=== PATIENT | female | born 1935 | race Caucasian/White ===

== ENCOUNTER 2021-12-19 20:20 | Inpatient (IN) | payer MEDICARE, OTHER ==
[~2021-12-19] VITALS: Ht 160 cm; Wt 52.2 kg
[2021-12-19 20:00] VITALS: BP 155/75
[2021-12-19] MEDS ORDERED: MAG HYDROX/AL HYDROX/SIMETH 30 ML UDC PO PRN (21:00)
[2021-12-19] MEDS ORDERED: MAGNESIUM HYDROXIDE 30 ML UDC PO PRN (21:00)
[2021-12-19] MEDS ORDERED: AMLO-213 PO (21:09)
[2021-12-19] MEDS ORDERED: ATOR20TA PO (21:11)
[2021-12-19] MEDS ORDERED: CARV12.52 PO (21:12)
[2021-12-19] MEDS ORDERED: POTA10CA43 PO (21:14)
[2021-12-19] MEDS ORDERED: LATA2.5D15 EACHEYE (21:16)
[2021-12-19] MEDS ORDERED: DONE5TAB34 PO (21:17)
[2021-12-19] MEDS ORDERED: QUET25TA PO (21:19)
[2021-12-19] MEDS ORDERED: BENA40TA8 PO (21:24)
[2021-12-19] MEDS ORDERED: MOXI3DRO EACHEYE (21:24)
[2021-12-19] MEDS ORDERED: THIA100T70 PO (21:26)
[2021-12-19] MEDS: POTASSIUM BICARBONATE/CIT AC 25 MEQ TABLET.EFF PO SCH (22:00)
[2021-12-19] MEDS: ATORVASTATIN 10 MG TABLET PO SCH (22:00)
[2021-12-19] MEDS ORDERED: BLOOD SUGAR DIAGNOSTIC 1 EACH STRIP IN ONE (22:30)
[2021-12-20 01:41] VITALS: BP 129/76
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
--- NOTE | 2021-12-20 06:27 | NUR ---
RN NOTES: PLACED CALL PT. DAUGHTER RADHA SAUNDERS LEFT MESSAGES # [phone] , REGARDING ABOUT PT. ADMITTED IN GPS .
--- NOTE | 2021-12-20 06:30 | NUR ---
RN NOTES: REFUSED SKIN SKIN ASESSMENT PT. REFUSED SKIN ASSESSMENT AND PHOTOS TAKEN , PER PT. MY SKIN IS FINE , NO NEED TO BE ASSESS , PT BEHAVIOR UNCOOPERTIVE ANXIOUS, RESTLESS,PARANOID , ENCOURAGED X3 BUT PT. STRONGLY REFUSED.
[2021-12-20 07:31] LABS: BASOPHILS % (AUTO) 0.4 % (0.0-2.0); EOSINOPHILS % (AUTO) 3.9 % (0.0-6.0); HEMATOCRIT 31 % (33-45); HEMOGLOBIN 10.2 g/dL (11.5-14.8); LYMPHOCYTES # (AUTO) 1.7 K/uL (0.8-4.8); LYMPHOCYTES % (AUTO) 24.1 % (20.0-44.0); MEAN CORPUSCULAR HGB CONC 33 g/dl (31.0-36.0); MEAN CORPUSCULAR VOLUME 88 fL (82-100); MONOCYTES # (AUTO) 0.7 K/uL (0.1-1.30); MONOCYTES % (AUTO) 9.8 % (2.0-12.0); NEUTROPHILS # (AUTO) 4.3 K/uL (1.8-8.9); NEUTROPHILS % (AUTO) 61.8 % (43.0-81.0); PLATELET COUNT (AUTO) 296 K/uL (150-450); RED BLOOD CELL COUNT(AUTO) 3.56 MIL/uL (4.0-5.2); WHITE BLOOD COUNT (AUTO) 6.9 K/uL (4.3-11.0)
[2021-12-20 07:40] LABS: CALCIUM, SERUM 8.4 mg/dL (8.5-10.1); CARBON DIOXIDE 26 mmol/L (21-32); CHLORIDE 109 mmol/L (98-107); CREATININE 1.4 mg/dL (0.6-1.3); GLUCOSE 90 mg/dL (74-106); POTASSIUM 3.3 mmol/L (3.5-5.1); SODIUM SERUM 141 mmol/L (136-145); UREA NITROGEN, BLOOD 29 mg/dL (7-18)
[2021-12-20 07:48] LABS: CHOLESTEROL 132 mg/dL (<200); HDL CHOLESTEROL 57 mg/dL (40-60); LDL 66 mg/dL (0-99); TRIGLYCERIDES 34 mg/dL (30-150)
[2021-12-20 08:00] VITALS: BP 151/76
[2021-12-20] MEDS: THIAMINE HCL 100 MG TABLET PO SCH (08:43)
[2021-12-20] MEDS: BENAZEPRIL HCL 20 MG TABLET PO SCH (08:44)
[2021-12-20] MEDS: CARVEDILOL 12.5 MG TABLET PO SCH ×2 (08:44→20:18)
[2021-12-20] MEDS: CEPHALEXIN MONOHYDRATE 500 MG CAPSULE PO SCH ×2 (08:44→20:08)
[2021-12-20] MEDS: POTASSIUM CHLORIDE 10 MEQ TABLET.SA PO SCH (08:45)
[2021-12-20] MEDS: AMLODIPINE BESYLATE 10 MG TABLET PO SCH (08:50)
[2021-12-20] MEDS: CIPROFLOXACIN HCL 0.3% 5 ML BOTTLE EACHEYE SCH (10:46)
[2021-12-20] MEDS: LORAZEPAM 0.5 MG TABLET PO PRN (15:27)
[2021-12-20 16:00] VITALS: BP 119/67
[2021-12-20] MEDS: LATANOPROST EYE DROP 0.005% 2.5 ML BOTTLE EACHEYE SCH (17:04)
[2021-12-20] MEDS: DONEPEZIL 5 MG TABLET PO SCH (17:05)
--- NOTE | 2021-12-20 19:46 | NUR ---
RN NOTES: REFUSED MRI RECIVED PHONE CALL FROM MRI , SPOKE WITH WARPER FIXERABRIL HALEY BUT PT. REFUSED MRI AT THIS TIME, PER PT.STATES NOTHING MRI TEST TONIGHT, MAY BE IN THE MORNING AND NO NEED TO BE CHECK NOW , PT BEHAVIOR UNCOOPERTIVE ANXIOUS,PARANOID , PRIMARY NURSE AND CHARGE NURSE BOTH ARE ENCOURAGED TO THE PATIENT, BUT PT. STRONGLY REFUSED.
[2021-12-20 20:22] VITALS: BP 128/74
--- NOTE | 2021-12-20 20:30 | NUR ---
RN NOTES: PATIENT PACING IN THE HALLWAY AWAKE, ALERT. NO S/SX OF ACUTE DISTRESS NOTED. PATIENT REMAINS ANXIOUS,UNCOOPERTIVE, PARANOID LOUD, DEMANDING, NEEDY, HYPERVERBAL,TALKING TO SELF, FOCUSED ON DISCHARGE. DENIES SI/HI/AVH AT THIS TIME. NEEDS FREQUENTLY REDIRECTIONS ,ENCOURAGED PT. TO VERBALIZED ANY FELLING OR CONCERN ,SAFETY PRECAUTIONS MAINTAINED. WILL CONTINUE TO MONITOR Q15MIN ROUNDS FOR SAFETY AND BEHAVIOR.
[2021-12-20] MEDS: QUETIAPINE FUMARATE 25 MG TABLET PO SCH (21:12)
[2021-12-20] MEDS: ATORVASTATIN 10 MG TABLET PO SCH (21:12)
--- NOTE | 2021-12-21 07:00 | NUR ---
GPS RN OPENING NOTES PATIENT LAYING IN BED, A/O X 1, CONFUSED AND DISORIENTED BUT CALM AFFECT AND COOPERATIVE WITH PLAN OF CARE. NO S/S PAIN, DISCOMFORT OR RESPIRATORY DISTRESS. SAFETY MEASURES IN PLACE: BED IN LOWEST LOCKED POSITION, SIDE RAILS UP X 2, CALL LIGHT WITHIN REACH. WILL CONTINUE TO MONITOR.
[2021-12-21 08:00] VITALS: BP 157/79
[2021-12-21] MEDS: THIAMINE HCL 100 MG TABLET PO SCH (08:37)
[2021-12-21] MEDS: BENAZEPRIL HCL 20 MG TABLET PO SCH (08:37)
[2021-12-21] MEDS: POTASSIUM CHLORIDE 10 MEQ TABLET.SA PO SCH (08:38)
[2021-12-21] MEDS: AMLODIPINE BESYLATE 10 MG TABLET PO SCH (08:38)
[2021-12-21] MEDS: CEPHALEXIN MONOHYDRATE 500 MG CAPSULE PO SCH ×2 (08:38→20:44)
[2021-12-21] MEDS: CARVEDILOL 12.5 MG TABLET PO SCH ×2 (08:38→20:44)
[2021-12-21] MEDS: CIPROFLOXACIN HCL 0.3% 5 ML BOTTLE EACHEYE SCH (08:45)
[2021-12-21 16:00] VITALS: BP 150/78
[2021-12-21] MEDS: DONEPEZIL 5 MG TABLET PO SCH (17:02)
[2021-12-21] MEDS: LATANOPROST EYE DROP 0.005% 2.5 ML BOTTLE EACHEYE SCH (17:07)
--- NOTE | 2021-12-21 18:02 | NUR ---
GPS RN CLOSING NOTES PATIENT SITTING IN CHAIR, A/O X 1, CONFUSED AND DISORIENTED BUT CALM AFFECT AND COOPERATIVE WITH PLAN OF CARE. NO S/S PAIN, DISCOMFORT OR RESPIRATORY DISTRESS. SAFETY MEASURES IN PLACE: BED IN LOWEST LOCKED POSITION, SIDE RAILS UP X 2, CALL LIGHT WITHIN REACH. ALL NEEDS MET. WILL ENDORSE TO COIN DEALER FOR MILAD[employer]. Addendum: 12/21/21 at 1806 by CJ ACOSTA RN SAFETY PRECAUTIONS: CHAIR WITH SIDE RAILS UP X 2, WITHIN VIEW OF NURSES STATION
--- NOTE | 2021-12-21 20:13 | NUR ---
RN NOTES: PATIENT WATCHING TV IN DAY ROOM AWAKE, ALERT. NO S/SX OF ACUTE DISTRESS NOTED. PATIENT REMAINS ANXIOUS,WANDRING AROUND THE UNIT UNCOOPERTIVE, PARANOID LOUD, DEMANDING, NEEDY, HYPERVERBAL,TALKING TO SELF, FOCUSED ON DISCHARGE. DENIES SI/HI/AVH AT THIS TIME. NEEDS FREQUENTLY REDIRECTIONS ,ENCOURAGED PT. TO VERBALIZED ANY FELLING OR CONCERN ,SAFETY PRECAUTIONS MAINTAINED. WILL CONTINUE TO MONITOR Q15MIN ROUNDS FOR SAFETY AND BEHAVIOR.
[2021-12-21 20:45] VITALS: BP 151/76
[2021-12-21] MEDS: QUETIAPINE FUMARATE 25 MG TABLET PO SCH (21:15)
[2021-12-21] MEDS: ATORVASTATIN 10 MG TABLET PO SCH (21:15)
--- NOTE | 2021-12-22 01:48 | NUR ---
RN NOTES: REFUSED SKIN ASESSMENT PT. REFUSED WEEKLY SKIN ASSESSMENT AND PHOTOS TAKEN , PER PT. MY SKIN IS FINE , NO NEED TO BE ASSESS ,UNCOOPERTIVE , PARANOID , ENCOURAGED X3 BUT PT. STRONGLY REFUSED.
[2021-12-22 08:00] VITALS: BP 170/58
[2021-12-22] MEDS: POTASSIUM CHLORIDE 10 MEQ TABLET.SA PO SCH (09:24)
[2021-12-22] MEDS: THIAMINE HCL 100 MG TABLET PO SCH (09:24)
[2021-12-22] MEDS: BENAZEPRIL HCL 20 MG TABLET PO SCH (09:25)
[2021-12-22] MEDS: AMLODIPINE BESYLATE 10 MG TABLET PO SCH (09:26)
[2021-12-22] MEDS: CARVEDILOL 12.5 MG TABLET PO SCH ×2 (09:26→21:38)
[2021-12-22] MEDS: CEPHALEXIN MONOHYDRATE 500 MG CAPSULE PO SCH ×2 (09:27→21:40)
[2021-12-22] MEDS: CIPROFLOXACIN HCL 0.3% 5 ML BOTTLE EACHEYE SCH (09:36)
--- NOTE | 2021-12-22 09:39 | NUR ---
Individual Therapy: SW met with pt to conduct brief therapy. Pt appeared guarded and stated "I do not want to talk right now". SW unable to conduct therapy at this time.
--- NOTE | 2021-12-22 10:19 | NUR ---
DINESH Family Contact: DINESH contacted pt's daughter Laverne ([phone]) and gathered collateral. She stated for the past 9 months, pt has been aggressive at home and has been leaving the house. She stated that pt has been on Seroquel for the past two to three months and it has not been helpful. She did report that sister Rosa is the DPOA and will send the document to this sports writer. Laverne reported that family is looking into a snf for pt in [place]. DINESH offered [place] locations but Laverne stated that they want to find one in [place]. DINESH discussed treatment and discharge plan with Laverne. DINESH notified this information to Dr. Carcamo.
--- NOTE | 2021-12-22 10:24 | NUR ---
DINESH Initial Discharge Plan: Pt currently resides at home located at [address] [place] [address]; ([phone]). Pt lives with daughter Laverne ([phone]). Daughter stated sister Rosa is DPOA and will send documents. They want pt to go to a nursing facility in [place]. DINESH will work with the MD, family, and pt to help coordinate appropriate discharge.
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
--- NOTE | 2021-12-22 10:25 | NUR ---
Treatment Plan: Pt refused to sign treatment plan and appeared angry. She stated "No, I will not sign".
[2021-12-22 16:00] VITALS: BP 160/59
[2021-12-22] MEDS: DONEPEZIL 5 MG TABLET PO SCH (18:19)
[2021-12-22] MEDS: LATANOPROST EYE DROP 0.005% 2.5 ML BOTTLE EACHEYE SCH (18:20)
--- NOTE | 2021-12-22 19:15 | NUR ---
GPS RN NOTES PATIENT IN THE DINING ROOM WATCHING TV. ALERT AND ORIENTED X1. NO S/SX OF ACUTE DISTRESS NOTED. PATIENT REMAINS CONFUSED, ANXIOUS, REQUIRES FREQUENT REDIRECTIONS AND DISORGANIZED. SAFETY PRECAUTIONS IN PLACE. WILL CONTINUE TO MONITOR Q15MIN ROUNDS FOR SAFETY AND BEHAVIOR.
[2021-12-22 20:07] VITALS: BP 153/80
[2021-12-22] MEDS: ATORVASTATIN 10 MG TABLET PO SCH (21:37)
[2021-12-22] MEDS: QUETIAPINE FUMARATE 25 MG TABLET PO SCH (21:37)
[2021-12-23 08:00] VITALS: BP 146/67
[2021-12-23] MEDS: THIAMINE HCL 100 MG TABLET PO SCH (09:08)
[2021-12-23] MEDS: CIPROFLOXACIN HCL 0.3% 5 ML BOTTLE EACHEYE SCH (09:08)
[2021-12-23] MEDS: AMLODIPINE BESYLATE 10 MG TABLET PO SCH (09:09)
[2021-12-23] MEDS: ASPIRIN EC 81 MG TABLET.DR PO SCH (09:09)
[2021-12-23] MEDS: CARVEDILOL 12.5 MG TABLET PO SCH ×2 (09:09→21:17)
[2021-12-23] MEDS: CEPHALEXIN MONOHYDRATE 500 MG CAPSULE PO SCH ×2 (09:09→21:18)
[2021-12-23] MEDS: POTASSIUM CHLORIDE 10 MEQ TABLET.SA PO SCH (09:09)
[2021-12-23] MEDS: BENAZEPRIL HCL 20 MG TABLET PO SCH (09:10)
--- NOTE | 2021-12-23 09:36 | NUR ---
DINESH Family Contact: DINESH spoke with pt's daughter Rosa ([phone]) and discussed pt's treatment and discharge plan. She reported that she is the DPOA and will send the document. Daughter shared that she has been taking care of pt for the past 11 years. She stated that pt has been aggressive for the past 11 years and has been forgetful. She expressed that pt will be needing a nursing facility and is open for this technical writer to recommend. DINESH gave three options: [facility], [facility], and [facility]. Rosa stated she will review and pick a facility for this technical writer to send clinicals. She also shared pt has been taking seroquel for the past two months and it has not been helpful. She is unsure if pt has been diagnosed with schizophrenia. Pt has been in a psych hospital last year at [facility] for two weeks but the hospital did not disclose any information to family. DINESH will continue to work with family to help coordinate appropriate placement.
--- NOTE | 2021-12-23 11:27 | NUR ---
SNF Referral: SW sent clinicals to [facility] ([phone]) for placement option. DINESH sent it to Marj manuel. SW sent H & P, progress notes, and medication list.
--- NOTE | 2021-12-23 11:27 | NUR ---
DINESH Family Contact: DINESH spoke with pt's daughter Rosa ([phone]) who would want this story writer to send clinicals to [facility].
[2021-12-23 16:00] VITALS: BP 121/55
--- NOTE | 2021-12-23 16:17 | NUR ---
SNF Contact: SW spoke with Marj manuel from [facility] ([phone]) who stated pt is accepted.
[2021-12-23] MEDS: DONEPEZIL 5 MG TABLET PO SCH (17:05)
[2021-12-23] MEDS: LATANOPROST EYE DROP 0.005% 2.5 ML BOTTLE EACHEYE SCH (17:05)
[2021-12-23] MEDS: risperiDONE 0.25 MG TABLET PO SCH (17:05)
--- NOTE | 2021-12-23 19:15 | NUR ---
GPS RN NOTES PATIENT IN HER BED RESTING COMFORTABLY. AWAKE, ALERT AND ORIENTED X1. NO S/SX OF ACUTE DISTRESS NOTED. PATIENT REMAINS CONFUSED, ANXIOUS, REQUIRES FREQUENT REDIRECTIONS, EASILY GETS IRRITABLE. ENCOURAGED PATIENT TO USE HER WALKER TO AMBULATE FOR SAFETY. WILL CONTINUE TO MONITOR Q15MIN ROUNDS FOR SAFETY AND BEHAVIOR.
[2021-12-23 20:17] VITALS: BP 141/60
[2021-12-23] MEDS: ATORVASTATIN 10 MG TABLET PO SCH (21:17)
[2021-12-23] MEDS ORDERED: TRAZODONE 50 MG TABLET PO SCH (22:00)
[2021-12-24] MEDS: ZOLPIDEM TARTRATE 5 MG TABLET PO PRN ×2 (01:15→22:56)
[2021-12-24 08:00] VITALS: BP 159/60
[2021-12-24] MEDS: BENAZEPRIL HCL 20 MG TABLET PO SCH (09:08)
[2021-12-24] MEDS: CIPROFLOXACIN HCL 0.3% 5 ML BOTTLE EACHEYE SCH (09:08)
[2021-12-24] MEDS: CARVEDILOL 12.5 MG TABLET PO SCH ×2 (09:09→21:23)
[2021-12-24] MEDS: risperiDONE 0.25 MG TABLET PO SCH ×2 (09:09→17:21)
[2021-12-24] MEDS: POTASSIUM CHLORIDE 10 MEQ TABLET.SA PO SCH (09:09)
[2021-12-24] MEDS: THIAMINE HCL 100 MG TABLET PO SCH (09:09)
[2021-12-24] MEDS: ASPIRIN EC 81 MG TABLET.DR PO SCH (09:09)
[2021-12-24] MEDS: CEPHALEXIN MONOHYDRATE 500 MG CAPSULE PO SCH ×2 (09:09→21:24)
[2021-12-24] MEDS: AMLODIPINE BESYLATE 10 MG TABLET PO SCH (09:10)
--- NOTE | 2021-12-24 09:22 | NUR ---
DINESH Family Contact: DINESH spoke with pt's daughter Rosa ([phone]) and notified that pt is accepted at [facility]. She reported that she will Email OA paperwork due to fax not working. Daughter Rosa is agreeable of pt going to [facility]. DINESH did notify the medication changes.
[2021-12-24] MEDS: NEO/POLY-B/DEXAM OPHTH SUSP 5 ML BOTTLE LEFTEYE SCH ×4 (11:05→21:25)
--- NOTE | 2021-12-24 11:22 | NUR ---
DPOA Paperwork: SW received DPOA paperwork and placed it in the chart. Daughter SIENNAJACKY Lee ([phone]).
--- NOTE | 2021-12-24 14:04 | NUR ---
Court Notification: SW contacted pt's VISH Lee ([phone]) and notified of 5250 hearing.
--- NOTE | 2021-12-24 14:04 | NUR ---
Court Hearing: Pt's court hearing for 5250 was today and it was upheld for danger to others.
[2021-12-24] MEDS: LORAZEPAM 0.5 MG TABLET PO PRN (14:12)
[2021-12-24 16:00] VITALS: BP 133/67
[2021-12-24] MEDS: DONEPEZIL 5 MG TABLET PO SCH (17:21)
[2021-12-24] MEDS: LATANOPROST EYE DROP 0.005% 2.5 ML BOTTLE EACHEYE SCH (17:23)
[2021-12-24] MEDS: ATORVASTATIN 10 MG TABLET PO SCH (21:20)
[2021-12-24] MEDS: TRAZODONE 50 MG TABLET PO SCH (21:40)
[2021-12-25] MEDS: NEO/POLY-B/DEXAM OPHTH SUSP 5 ML BOTTLE LEFTEYE SCH ×6 (00:39→21:00)
--- NOTE | 2021-12-25 01:00 | NUR ---
rn notes; pt refused nadeem/poly-b/dexam ophth susp 5ml bottle left eyes Q4hrs.explained the benefits and action.
[2021-12-25] MEDS: LORAZEPAM 0.5 MG TABLET PO PRN (05:43)
[2021-12-25] MEDS: ACETAMINOPHEN 325 MG TABLET PO PRN (05:47)
[2021-12-25 08:00] VITALS: BP 148/61
[2021-12-25] MEDS: THIAMINE HCL 100 MG TABLET PO SCH (08:53)
[2021-12-25] MEDS: BENAZEPRIL HCL 20 MG TABLET PO SCH (08:53)
[2021-12-25] MEDS: CARVEDILOL 12.5 MG TABLET PO SCH ×2 (08:53→20:51)
[2021-12-25] MEDS: POTASSIUM CHLORIDE 10 MEQ TABLET.SA PO SCH (08:53)
[2021-12-25] MEDS: ASPIRIN EC 81 MG TABLET.DR PO SCH (08:54)
[2021-12-25] MEDS: risperiDONE 0.25 MG TABLET PO SCH ×3 (08:54→17:02)
[2021-12-25] MEDS: AMLODIPINE BESYLATE 10 MG TABLET PO SCH (08:55)
[2021-12-25] MEDS: CEPHALEXIN MONOHYDRATE 500 MG CAPSULE PO SCH (08:56)
[2021-12-25] MEDS: CIPROFLOXACIN HCL 0.3% 5 ML BOTTLE EACHEYE SCH (11:07)
[2021-12-25] MEDS: LATANOPROST EYE DROP 0.005% 2.5 ML BOTTLE EACHEYE SCH (11:09)
[2021-12-25] MEDS: DIVALPROEX SODIUM 250 MG TABLET.DR PO SCH ×2 (11:16→20:51)
[2021-12-25 16:00] VITALS: BP 156/82
[2021-12-25] MEDS: DONEPEZIL 5 MG TABLET PO SCH (17:02)
[2021-12-25 20:00] VITALS: BP 163/87
[2021-12-25] MEDS: ATORVASTATIN 10 MG TABLET PO SCH (21:06)
[2021-12-25] MEDS: TRAZODONE 50 MG TABLET PO SCH (21:08)
[2021-12-25] MEDS: ZOLPIDEM TARTRATE 5 MG TABLET PO PRN (23:29)
[2021-12-26] MEDS: LORAZEPAM 0.5 MG TABLET PO PRN (01:32)
[2021-12-26] MEDS: NEO/POLY-B/DEXAM OPHTH SUSP 5 ML BOTTLE LEFTEYE SCH ×6 (01:37→21:35)
[2021-12-26 08:00] VITALS: BP 159/88
--- NOTE | 2021-12-26 08:47 | NUR ---
DINESH Family Contact: SW spoke with pt's daughter Rosa WAHL ([phone]) and she stated she is agreeable of pt going to [facility].
[2021-12-26] MEDS: ASPIRIN EC 81 MG TABLET.DR PO SCH (09:33)
[2021-12-26] MEDS: THIAMINE HCL 100 MG TABLET PO SCH (09:33)
[2021-12-26] MEDS: DIVALPROEX SODIUM 250 MG TABLET.DR PO SCH ×2 (09:34→21:37)
[2021-12-26] MEDS: BENAZEPRIL HCL 20 MG TABLET PO SCH (09:34)
[2021-12-26] MEDS: CARVEDILOL 12.5 MG TABLET PO SCH ×2 (09:35→21:36)
[2021-12-26] MEDS: risperiDONE 0.25 MG TABLET PO SCH ×2 (09:35→16:33)
[2021-12-26] MEDS: POTASSIUM CHLORIDE 10 MEQ TABLET.SA PO SCH (09:35)
[2021-12-26] MEDS: AMLODIPINE BESYLATE 10 MG TABLET PO SCH (09:36)
[2021-12-26] MEDS: CIPROFLOXACIN HCL 0.3% 5 ML BOTTLE EACHEYE SCH (10:12)
[2021-12-26 16:00] VITALS: BP 147/90
[2021-12-26] MEDS: LATANOPROST EYE DROP 0.005% 2.5 ML BOTTLE EACHEYE SCH (17:26)
[2021-12-26] MEDS: DONEPEZIL 5 MG TABLET PO SCH (17:26)
[2021-12-26 20:00] VITALS: BP 148/81
[2021-12-26] MEDS: ATORVASTATIN 10 MG TABLET PO SCH (21:37)
[2021-12-26] MEDS: TRAZODONE 50 MG TABLET PO SCH (21:37)
--- NOTE | 2021-12-26 22:00 | NUR ---
Pt compliant with her meds, took all due medications. Cont to monitor and anticipate needs.
--- NOTE | 2021-12-27 | NUR ---
Pt sleeping at this time, breathing even and unlabored, easy to arouse, no s/sx of distress or discomfort. Safety measures observed will continue to monitor safety and anticipate needs.
[2021-12-27] MEDS: NEO/POLY-B/DEXAM OPHTH SUSP 5 ML BOTTLE LEFTEYE SCH ×6 (00:17→21:38)
[2021-12-27 08:00] VITALS: BP 113/68
[2021-12-27] MEDS: THIAMINE HCL 100 MG TABLET PO SCH (08:43)
[2021-12-27] MEDS: DIVALPROEX SODIUM 250 MG TABLET.DR PO SCH ×2 (08:43→21:39)
[2021-12-27] MEDS: ASPIRIN EC 81 MG TABLET.DR PO SCH (08:43)
[2021-12-27] MEDS: ACETAMINOPHEN 325 MG TABLET PO PRN (08:43)
[2021-12-27] MEDS: POTASSIUM CHLORIDE 10 MEQ TABLET.SA PO SCH (08:43)
[2021-12-27] MEDS: CARVEDILOL 12.5 MG TABLET PO SCH ×2 (08:44→21:39)
[2021-12-27] MEDS: risperiDONE 0.25 MG TABLET PO SCH ×2 (08:44→17:17)
[2021-12-27] MEDS: AMLODIPINE BESYLATE 10 MG TABLET PO SCH (08:45)
[2021-12-27] MEDS: BENAZEPRIL HCL 20 MG TABLET PO SCH (08:45)
[2021-12-27] MEDS: CIPROFLOXACIN HCL 0.3% 5 ML BOTTLE EACHEYE SCH (08:47)
[2021-12-27 16:00] VITALS: BP 140/66
[2021-12-27] MEDS: LATANOPROST EYE DROP 0.005% 2.5 ML BOTTLE EACHEYE SCH (17:15)
[2021-12-27] MEDS: DONEPEZIL 5 MG TABLET PO SCH (17:19)
[2021-12-27 19:55] VITALS: BP 138/69
[2021-12-27 20:31] VITALS: BP 138/69
[2021-12-27] MEDS: ATORVASTATIN 10 MG TABLET PO SCH (21:52)
[2021-12-27] MEDS: TRAZODONE 50 MG TABLET PO SCH (22:06)
[2021-12-28] MEDS: NEO/POLY-B/DEXAM OPHTH SUSP 5 ML BOTTLE LEFTEYE SCH ×6 (01:06→20:33)
[2021-12-28 08:00] VITALS: BP 151/65
[2021-12-28] MEDS: CIPROFLOXACIN HCL 0.3% 5 ML BOTTLE EACHEYE SCH (08:06)
[2021-12-28] MEDS: THIAMINE HCL 100 MG TABLET PO SCH (08:08)
[2021-12-28] MEDS: BENAZEPRIL HCL 20 MG TABLET PO SCH (08:08)
[2021-12-28] MEDS: DIVALPROEX SODIUM 250 MG TABLET.DR PO SCH ×2 (08:08→20:26)
[2021-12-28] MEDS: CARVEDILOL 12.5 MG TABLET PO SCH ×2 (08:09→20:26)
[2021-12-28] MEDS: risperiDONE 0.25 MG TABLET PO SCH ×2 (08:09→17:08)
[2021-12-28] MEDS: AMLODIPINE BESYLATE 10 MG TABLET PO SCH (08:09)
[2021-12-28] MEDS: ASPIRIN EC 81 MG TABLET.DR PO SCH (08:10)
[2021-12-28] MEDS: POTASSIUM CHLORIDE 10 MEQ TABLET.SA PO SCH (08:10)
--- NOTE | 2021-12-28 10:00 | NUR ---
PATIENT REFUSED SHOWER WHICH PATIENT'S DTR ASKED FOR PATIENT.
[2021-12-28 16:00] VITALS: BP 146/68
[2021-12-28] MEDS: DONEPEZIL 5 MG TABLET PO SCH (17:07)
[2021-12-28] MEDS: LATANOPROST EYE DROP 0.005% 2.5 ML BOTTLE EACHEYE SCH (17:12)
[2021-12-28] MEDS: LORAZEPAM 0.5 MG TABLET PO PRN (17:12)
--- NOTE | 2021-12-28 19:15 | NUR ---
GPS RN NOTES PATIENT IN THE DINING ROOM SITTING IN A ROBERTO CHAIR. AWAKE, A/OX1. NO S/SX OF ACUTE DISTRESS NOTED. PATIENT REMAINS CONFUSED, ANXIOUS, ARGUMENTATIVE, DISORGANIZED, REQUIRES FREQUENT REDIRECTIONS. SAFETY PRECAUTIONS IN PLACE. WILL CONTINUE TO MONITOR Q15MIN ROUNDS FOR SAFETY AND BEHAVIOR.
--- NOTE | 2021-12-28 20:00 | NUR ---
GPS RN NOTES PATIENT REFUSED WEEKLY SKIN ASSESSMENT.
[2021-12-28 20:31] VITALS: BP 172/86
[2021-12-28 21:00] VITALS: BP 148/82
[2021-12-28] MEDS: TRAZODONE 50 MG TABLET PO SCH (21:05)
[2021-12-28] MEDS: ATORVASTATIN 10 MG TABLET PO SCH (21:05)
[2021-12-28] MEDS: ZOLPIDEM TARTRATE 5 MG TABLET PO PRN (22:28)
[2021-12-29] MEDS: NEO/POLY-B/DEXAM OPHTH SUSP 5 ML BOTTLE LEFTEYE SCH ×6 (01:44→21:09)
[2021-12-29] MEDS: ACETAMINOPHEN 325 MG TABLET PO PRN (02:00)
[2021-12-29] MEDS: LORAZEPAM 0.5 MG TABLET PO PRN (02:01)
[2021-12-29 08:00] VITALS: BP 150/63
[2021-12-29] MEDS: BENAZEPRIL HCL 20 MG TABLET PO SCH (09:12)
[2021-12-29] MEDS: POTASSIUM CHLORIDE 10 MEQ TABLET.SA PO SCH (09:12)
[2021-12-29] MEDS: risperiDONE 0.25 MG TABLET PO SCH ×2 (09:13→17:18)
[2021-12-29] MEDS: AMLODIPINE BESYLATE 10 MG TABLET PO SCH (09:13)
[2021-12-29] MEDS: DIVALPROEX SODIUM 250 MG TABLET.DR PO SCH ×2 (09:13→21:10)
[2021-12-29] MEDS: ASPIRIN EC 81 MG TABLET.DR PO SCH (09:13)
[2021-12-29] MEDS: CARVEDILOL 12.5 MG TABLET PO SCH ×2 (09:13→21:10)
[2021-12-29] MEDS: THIAMINE HCL 100 MG TABLET PO SCH (09:13)
[2021-12-29] MEDS: CIPROFLOXACIN HCL 0.3% 5 ML BOTTLE EACHEYE SCH (09:15)
--- NOTE | 2021-12-29 13:18 | NUR ---
pt c/o constipation medicated with MOm.
[2021-12-29 16:00] VITALS: BP 136/80
[2021-12-29] MEDS: DONEPEZIL 5 MG TABLET PO SCH (17:18)
[2021-12-29] MEDS: LATANOPROST EYE DROP 0.005% 2.5 ML BOTTLE EACHEYE SCH (17:19)
[2021-12-29 20:22] VITALS: BP 158/58
[2021-12-29 20:56] VITALS: BP 158/58
[2021-12-29] MEDS: TRAZODONE 50 MG TABLET PO SCH (21:58)
[2021-12-29] MEDS: ATORVASTATIN 10 MG TABLET PO SCH (21:58)
[2021-12-29] MEDS: ZOLPIDEM TARTRATE 5 MG TABLET PO PRN (23:11)
--- NOTE | 2021-12-29 23:16 | NUR ---
RN NOTE: INSOMNIA PATIENT IS UNABLE TO SLEEP, GETS IRRITABLE EASILY, PRN AMBIEN 5 MG PO ADMINISTERED. WILL CONTINUE TO MONITOR.
[2021-12-30] MEDS: NEO/POLY-B/DEXAM OPHTH SUSP 5 ML BOTTLE LEFTEYE SCH ×6 (01:15→21:19)
[2021-12-30] MEDS: LORAZEPAM 0.5 MG TABLET PO PRN (03:24)
--- NOTE | 2021-12-30 03:26 | NUR ---
RN NOTE: ANXIETY/AGITATION PATIENT IS ANXIOUS, RESTLESS, GOT AGITATED WHEN REDIRECTED. PRN ATIVAN 0.5 MG PO ADMINISTERED ORDERED BY MD. WILL CONTINUE TO MONITOR.
[2021-12-30 08:00] VITALS: BP 150/87
[2021-12-30] MEDS: POTASSIUM CHLORIDE 10 MEQ TABLET.SA PO SCH (08:57)
[2021-12-30] MEDS: THIAMINE HCL 100 MG TABLET PO SCH (08:57)
[2021-12-30] MEDS: CARVEDILOL 12.5 MG TABLET PO SCH ×2 (08:57→21:17)
[2021-12-30] MEDS: DIVALPROEX SODIUM 250 MG TABLET.DR PO SCH ×2 (08:58→21:17)
[2021-12-30] MEDS: ASPIRIN EC 81 MG TABLET.DR PO SCH (08:58)
[2021-12-30] MEDS: risperiDONE 0.25 MG TABLET PO SCH ×2 (08:58→17:23)
[2021-12-30] MEDS: AMLODIPINE BESYLATE 10 MG TABLET PO SCH (08:58)
[2021-12-30] MEDS: BENAZEPRIL HCL 20 MG TABLET PO SCH (08:59)
[2021-12-30] MEDS: CIPROFLOXACIN HCL 0.3% 5 ML BOTTLE EACHEYE SCH (09:27)
--- NOTE | 2021-12-30 09:50 | NUR ---
RN NOTE PATIENT WITH PLEASANT DISPOSITION, AND COMPLIANT WITH HER MEDICATIONS.
[2021-12-30 13:09] LABS: BASOPHILS % (AUTO) 0.2 % (0.0-2.0); EOSINOPHILS % (AUTO) 0.6 % (0.0-6.0); HEMATOCRIT 35 % (33-45); HEMOGLOBIN 10.9 g/dL (11.5-14.8); LYMPHOCYTES # (AUTO) 1.2 K/uL (0.8-4.8); LYMPHOCYTES % (AUTO) 11.9 % (20.0-44.0); MEAN CORPUSCULAR HGB CONC 31 g/dl (31.0-36.0); MEAN CORPUSCULAR VOLUME 87 fL (82-100); MONOCYTES # (AUTO) 0.8 K/uL (0.1-1.30); MONOCYTES % (AUTO) 8.1 % (2.0-12.0); NEUTROPHILS # (AUTO) 8.2 K/uL (1.8-8.9); NEUTROPHILS % (AUTO) 79.2 % (43.0-81.0); PLATELET COUNT (AUTO) 319 K/uL (150-450); RED BLOOD CELL COUNT(AUTO) 3.98 MIL/uL (4.0-5.2); WHITE BLOOD COUNT (AUTO) 10.4 K/uL (4.3-11.0)
[2021-12-30 13:26] LABS: ALANINE AMINOTRANSFERASE 21 U/L (12-78); ALKALINE PHOSPHATASE 84 U/L (46-116); ASPARTATE AMINOTRANSFERASE 17 U/L (15-37); BILIRUBIN,TOTAL 0.3 mg/dL (0.2-1.0); CALCIUM, SERUM 9.1 mg/dL (8.5-10.1); CARBON DIOXIDE 30 mmol/L (21-32); CHLORIDE 103 mmol/L (98-107); CREATININE 1.1 mg/dL (0.6-1.3); GLUCOSE 100 mg/dL (74-106); SODIUM SERUM 140 mmol/L (136-145); TOTAL PROTEIN, SERUM 7.3 g/dL (6.4-8.2); UREA NITROGEN, BLOOD 20 mg/dL (7-18)
[2021-12-30 14:47] LABS: VALPROIC ACID 52 ug/mL (50-100)
[2021-12-30 16:00] VITALS: BP 153/87
[2021-12-30] MEDS: DONEPEZIL 5 MG TABLET PO SCH (17:23)
[2021-12-30] MEDS: LATANOPROST EYE DROP 0.005% 2.5 ML BOTTLE EACHEYE SCH (17:24)
[2021-12-30 20:28] VITALS: BP 145/55
[2021-12-30 20:57] VITALS: BP 145/55
[2021-12-30] MEDS: TRAZODONE 50 MG TABLET PO SCH (22:06)
[2021-12-30] MEDS ORDERED: ATORVASTATIN 10 MG TABLET ONE (22:28)
[2021-12-30] MEDS: ATORVASTATIN 10 MG TABLET PO SCH (22:30)
[2021-12-31] MEDS: ZOLPIDEM TARTRATE 5 MG TABLET PO PRN ×2 (00:04→23:20)
--- NOTE | 2021-12-31 00:06 | NUR ---
RN NOTE: INSOMNIA PATIENT IS UNABLE TO SLEEP, GETS IRRITABLE EASILY, PRN AMBIEN 5 MG PO ADMINISTERED. WILL CONTINUE TO MONITOR.
[2021-12-31] MEDS: NEO/POLY-B/DEXAM OPHTH SUSP 5 ML BOTTLE LEFTEYE SCH ×6 (01:19→21:48)
[2021-12-31 08:00] VITALS: BP 148/71
[2021-12-31 08:13] LABS: CALCIUM, SERUM 8.8 mg/dL (8.5-10.1); CREATININE 1.3 mg/dL (0.6-1.3); POTASSIUM 3.6 mmol/L (3.5-5.1)
[2021-12-31] MEDS: POTASSIUM CHLORIDE 10 MEQ TABLET.SA PO SCH (09:02)
[2021-12-31] MEDS: risperiDONE 0.25 MG TABLET PO SCH ×2 (09:02→16:24)
[2021-12-31] MEDS: BENAZEPRIL HCL 20 MG TABLET PO SCH (09:02)
[2021-12-31] MEDS: THIAMINE HCL 100 MG TABLET PO SCH (09:02)
[2021-12-31] MEDS: ASPIRIN EC 81 MG TABLET.DR PO SCH (09:03)
[2021-12-31] MEDS: DIVALPROEX SODIUM 250 MG TABLET.DR PO SCH ×2 (09:03→21:47)
[2021-12-31] MEDS: AMLODIPINE BESYLATE 10 MG TABLET PO SCH (09:03)
[2021-12-31] MEDS: CARVEDILOL 12.5 MG TABLET PO SCH ×2 (09:03→21:48)
[2021-12-31] MEDS: CIPROFLOXACIN HCL 0.3% 5 ML BOTTLE EACHEYE SCH (09:08)
--- NOTE | 2021-12-31 13:43 | NUR ---
RN-CO: Patient is pleasant and took all her medications, however she needs constant redirections due to confusion. She denied pain and discomforts.
[2021-12-31 16:00] VITALS: BP 140/58
--- NOTE | 2021-12-31 17:35 | NUR ---
RN-CO: Tried to collect urine specimen but patient was not able to urinate. Tried in and out cath , pt refused and became agitated. Will endorse to the next shift.
[2021-12-31] MEDS: DONEPEZIL 5 MG TABLET PO SCH (18:09)
[2021-12-31] MEDS: LATANOPROST EYE DROP 0.005% 2.5 ML BOTTLE EACHEYE SCH (18:12)
--- NOTE | 2021-12-31 19:30 | NUR ---
GPS RN NOTE, RECEIVED PATIENT AWAKE AND IN BED, NO S/S OR COMPLAINTS OF PAIN AT THIS TIME. PATIENT IS DISPLAYING NO S/S OF APPARENT DISTRESS AT THIS TIME. PATIENT BREATHING IS UNLABORED WITH EQUAL RISE AND FALL OF THE CHEST. PATIENT IS ALERT AND ORIENTED X 1 ON ROOM AIR WITH A SPO2 99%. PATIENT IS COMPLIANT WITH MEDICATIONS, CONFUSED, ANXIOUS, PARANOID, AND COOPERATIVE. PATIENT DENIES SUICIDAL AND HOMICIDAL IDEATIONS AT THIS TIME. PATIENT ASSISTED WITH TURNING AND REPOSITIONING Q2HR AND PRN FOR COMFORT AND CIRCULATION. PATIENT HAS NO NEEDS AT THIS TIME. PATIENT EDUCATED ON THE USE OF THE CALL MILLER. PATIENT BED SIDE RAILS UP X 2 FOR SAFETY. PATIENT BED IS LOCKED, LOW, WITH BED ALARM ON. WILL CONTINUE TO MONITOR THIS PATIENT Q15 MINUTES WITH THE HELP OF STAFF TO MAINTAIN SAFETY.
[2021-12-31 20:00] VITALS: BP 142/62
[2021-12-31] MEDS: TRAZODONE 50 MG TABLET PO SCH (21:47)
[2021-12-31] MEDS: ATORVASTATIN 10 MG TABLET PO SCH (21:47)
[2021-12-31] MEDS: ACETAMINOPHEN 325 MG TABLET PO PRN (23:20)
--- NOTE | 2021-12-31 23:24 | NUR ---
GPS RN NOTE, PATIENT HAS A COMPLAINT OF NOT BEING ABLE TO SLEEP AND IS REQUESTING AMBIEN AT THIS TIME. PATIENT VITAL SIGNS ARE STABLE. GAVE AMBIEN 5MG PO HS PRN ORDERED. WILL REASSESS FOR INSOMNIA AND I WILL CONTINUE TO MONITOR THIS PATIENT WITH THE HELP OF STAFF.
--- NOTE | 2021-12-31 23:26 | NUR ---
GPS RN NOTE, PATIENT HAS A COMPLAINT OF LEFT HIP PAIN AT 2 OUT 10 ON THE PAIN SCALE AND IS REQUESTING TYLENOL AT THIS TIME. PATIENT VITAL SIGNS ARE STABLE. GAVE TYLENOL 650MG PO Q6HR PRN ORDERED. WILL REASSESS PAIN AND I WILL CONTINUE TO MONITOR THIS PATIENT WITH THE HELP OF STAFF.
[2022-01-01] MEDS: NEO/POLY-B/DEXAM OPHTH SUSP 5 ML BOTTLE LEFTEYE SCH ×6 (01:51→21:54)
[2022-01-01 08:00] VITALS: BP 134/57
[2022-01-01] MEDS: risperiDONE 0.25 MG TABLET PO SCH ×2 (09:14→16:35)
[2022-01-01] MEDS: BENAZEPRIL HCL 20 MG TABLET PO SCH (09:15)
[2022-01-01] MEDS: DIVALPROEX SODIUM 250 MG TABLET.DR PO SCH ×2 (09:15→21:51)
[2022-01-01] MEDS: THIAMINE HCL 100 MG TABLET PO SCH (09:15)
[2022-01-01] MEDS: AMLODIPINE BESYLATE 10 MG TABLET PO SCH (09:16)
[2022-01-01] MEDS: POTASSIUM CHLORIDE 10 MEQ TABLET.SA PO SCH (09:16)
[2022-01-01] MEDS: CARVEDILOL 12.5 MG TABLET PO SCH ×2 (09:16→21:52)
[2022-01-01] MEDS: ASPIRIN EC 81 MG TABLET.DR PO SCH (09:17)
[2022-01-01] MEDS: CIPROFLOXACIN HCL 0.3% 5 ML BOTTLE EACHEYE SCH (11:02)
[2022-01-01 15:55] LABS: BILIRUBIN,URINE NEGATIVE (NEGATIVE); COLOR,URINE YELLOW (YELLOW); LEUKOCYTE ESTERASE ,URINE SMALL (NEGATIVE); NITRITE, URINE NEGATIVE (NEGATIVE); PROTEIN,URINE 30 mg/dl (NEGATIVE); UGLUCOSE NEGATIVE (NEGATIVE); UROBILINOGEN,URINE 0.2 EU/dL (0.2)
[2022-01-01 16:00] VITALS: BP 140/61
[2022-01-01 16:16] LABS: BACTERIA,URINE 1+ /HPF (None Seen); URINE AMORPHOUS URATE Moderate /HPF (None Seen)
[2022-01-01] MEDS: DONEPEZIL 5 MG TABLET PO SCH (16:35)
[2022-01-01] MEDS: LATANOPROST EYE DROP 0.005% 2.5 ML BOTTLE EACHEYE SCH (17:13)
--- NOTE | 2022-01-01 18:59 | NUR ---
PT REMAINED IN BED MOST OF DAY AND RESTED, EASY TO AROUSE, COMPLIANT WITH ALL MEDICATIONS AND TOOK ALL PO PILLS WHOLE, NO ASPIRATION NOTED, NO C/O PAIN , NO SOB NOTED, AND NO DISTRESS NOTED DURING AM SHIFT, ENCOURAGED TO GET UP AND EAT AND JOIN GROUP SESSIONS JUST WANTED TO STAY IN BED AND RELAX DURING THE AM SHIFT. ALL NEEDS MET IN A TIMELY MANNER. ALL SAFETY MEASURES IN PLACE.
--- NOTE | 2022-01-01 19:33 | NUR ---
GPS RN OPENING NOTES: RECEIVED PATIENT LAYING IN BED. A/O X1. DISORGANIZED, DISORIENTED, CONFUSED, PASSIVE, WITHDRAWN, POOR INSIGHT, POOR JUDGEMENT. NO S/S OF DISTRESS. RESPIRATION EVEN AND UNLABORED WITH EQUAL RISE AND FALL OF THE CHEST, ON ROOM AIR. OFFERED FLUID AND SNACKS TOLERATED. BED IN LOWEST POSITION AND LOCKED, SIDE RAILS UP X2 FOR SAFETY. WILL CONTINUE TO MONITOR Q15 FOR MOOD, SAFETY AND BEHAVIOR.
[2022-01-01 21:06] VITALS: BP 143/67
[2022-01-01 21:50] LABS: BILIRUBIN,URINE NEGATIVE (NEGATIVE); COLOR,URINE YELLOW (YELLOW); LEUKOCYTE ESTERASE ,URINE SMALL (NEGATIVE); NITRITE, URINE NEGATIVE (NEGATIVE); PROTEIN,URINE TRACE mg/dl (NEGATIVE); UGLUCOSE NEGATIVE (NEGATIVE); UROBILINOGEN,URINE 0.2 EU/dL (0.2)
[2022-01-01] MEDS: ATORVASTATIN 10 MG TABLET PO SCH (21:50)
[2022-01-01] MEDS: TRAZODONE 50 MG TABLET PO SCH (21:50)
[2022-01-01 22:06] LABS: BACTERIA,URINE 1+ /HPF (None Seen); SQUAMOUS EPITHELIAL CELL,UR 0-2 /HPF (None Seen)
[2022-01-02] MEDS: NEO/POLY-B/DEXAM OPHTH SUSP 5 ML BOTTLE LEFTEYE SCH ×6 (01:22→21:59)
--- NOTE | 2022-01-02 07:00 | NUR ---
GPS RN OPENING NOTES PATIENT LAYING IN BED. A/O X2, COOPERATIVE, POOR INSIGHT AND POOR JUDGEMENT. NO S/S PAIN OR DISTRESS. RESPIRATIONS EVEN AND UNLABORED ON ROOM AIR. OFFERED FLUID AND SNACKS TOLERATED. BED IN LOWEST POSITION AND LOCKED, SIDE RAILS UP X2 FOR SAFETY. WILL CONTINUE TO MONITOR Q15 FOR MOOD, SAFETY AND BEHAVIOR.
[2022-01-02 08:00] VITALS: BP 134/50
[2022-01-02] MEDS: POTASSIUM CHLORIDE 10 MEQ TABLET.SA PO SCH (08:27)
[2022-01-02] MEDS: THIAMINE HCL 100 MG TABLET PO SCH (08:27)
[2022-01-02] MEDS: DIVALPROEX SODIUM 250 MG TABLET.DR PO SCH ×2 (08:27→21:51)
[2022-01-02] MEDS: ASPIRIN EC 81 MG TABLET.DR PO SCH (08:27)
[2022-01-02] MEDS: AMLODIPINE BESYLATE 10 MG TABLET PO SCH (08:28)
[2022-01-02] MEDS: CIPROFLOXACIN HCL 0.3% 5 ML BOTTLE EACHEYE SCH (08:28)
[2022-01-02] MEDS: risperiDONE 0.25 MG TABLET PO SCH ×2 (08:28→16:27)
[2022-01-02] MEDS: BENAZEPRIL HCL 20 MG TABLET PO SCH (08:28)
[2022-01-02] MEDS: CARVEDILOL 12.5 MG TABLET PO SCH ×2 (08:28→21:52)
[2022-01-02 16:00] VITALS: BP 129/73
[2022-01-02] MEDS: DONEPEZIL 5 MG TABLET PO SCH (17:06)
[2022-01-02] MEDS: LATANOPROST EYE DROP 0.005% 2.5 ML BOTTLE EACHEYE SCH (17:08)
[2022-01-02 21:16] VITALS: BP 131/67
[2022-01-02] MEDS: TRAZODONE 50 MG TABLET PO SCH (21:51)
[2022-01-02] MEDS: ATORVASTATIN 10 MG TABLET PO SCH (21:52)
[2022-01-03] MEDS: NEO/POLY-B/DEXAM OPHTH SUSP 5 ML BOTTLE LEFTEYE SCH ×6 (01:01→21:37)
[2022-01-03] MEDS: ZOLPIDEM TARTRATE 5 MG TABLET PO PRN ×2 (01:01→23:45)
[2022-01-03 08:00] VITALS: BP 136/63
[2022-01-03] MEDS: CIPROFLOXACIN HCL 0.3% 5 ML BOTTLE EACHEYE SCH (08:48)
[2022-01-03] MEDS: AMLODIPINE BESYLATE 10 MG TABLET PO SCH (08:49)
[2022-01-03] MEDS: ASPIRIN EC 81 MG TABLET.DR PO SCH (08:49)
[2022-01-03] MEDS: THIAMINE HCL 100 MG TABLET PO SCH (08:49)
[2022-01-03] MEDS: CARVEDILOL 12.5 MG TABLET PO SCH ×2 (08:49→21:36)
[2022-01-03] MEDS: POTASSIUM CHLORIDE 10 MEQ TABLET.SA PO SCH (08:50)
[2022-01-03] MEDS: risperiDONE 0.25 MG TABLET PO SCH ×2 (08:50→17:32)
[2022-01-03] MEDS: BENAZEPRIL HCL 20 MG TABLET PO SCH (08:50)
[2022-01-03] MEDS: DIVALPROEX SODIUM 250 MG TABLET.DR PO SCH ×2 (08:50→21:37)
[2022-01-03 16:00] VITALS: BP 148/86
[2022-01-03] MEDS: DONEPEZIL 5 MG TABLET PO SCH (17:32)
[2022-01-03] MEDS: LATANOPROST EYE DROP 0.005% 2.5 ML BOTTLE EACHEYE SCH (18:04)
[2022-01-03 20:10] VITALS: BP 133/69
[2022-01-03 21:01] VITALS: BP 137/42
[2022-01-03] MEDS: ATORVASTATIN 10 MG TABLET PO SCH (21:50)
[2022-01-03] MEDS: TRAZODONE 50 MG TABLET PO SCH (22:07)
[2022-01-04] MEDS: NEO/POLY-B/DEXAM OPHTH SUSP 5 ML BOTTLE LEFTEYE SCH ×6 (01:18→21:18)
[2022-01-04 08:00] VITALS: BP 166/84
[2022-01-04] MEDS: ASPIRIN EC 81 MG TABLET.DR PO SCH (08:24)
[2022-01-04] MEDS: risperiDONE 0.25 MG TABLET PO SCH ×2 (08:24→17:58)
[2022-01-04] MEDS: THIAMINE HCL 100 MG TABLET PO SCH (08:25)
[2022-01-04] MEDS: POTASSIUM CHLORIDE 10 MEQ TABLET.SA PO SCH (08:25)
[2022-01-04] MEDS: DIVALPROEX SODIUM 250 MG TABLET.DR PO SCH ×2 (08:25→21:16)
[2022-01-04] MEDS: BENAZEPRIL HCL 20 MG TABLET PO SCH (08:27)
[2022-01-04] MEDS: AMLODIPINE BESYLATE 10 MG TABLET PO SCH (08:27)
[2022-01-04] MEDS: CARVEDILOL 12.5 MG TABLET PO SCH ×2 (08:30→21:16)
[2022-01-04] MEDS: CIPROFLOXACIN HCL 0.3% 5 ML BOTTLE EACHEYE SCH (09:55)
[2022-01-04 16:00] VITALS: BP 145/69
[2022-01-04] MEDS: LATANOPROST EYE DROP 0.005% 2.5 ML BOTTLE EACHEYE SCH (17:58)
[2022-01-04] MEDS: DONEPEZIL 5 MG TABLET PO SCH (17:59)
[2022-01-04] MEDS: LORAZEPAM 0.5 MG TABLET PO PRN (19:53)
--- NOTE | 2022-01-04 19:55 | NUR ---
RN NOTE: ANXIETY/AGITATION PATIENT IS ANXIOUS, RESTLESS AND EASILY AGITATED, NON REDIRECTABLE AT THIS TIME. PRN ATIVAN 0.5 MG PO ADMINISTERED PER MD ORDER. WILL CONTINUE TO MONITOR FOR ANY CHANGE OF CONDITION.
[2022-01-04 20:10] VITALS: BP 148/54
[2022-01-04 20:38] VITALS: BP 148/54
[2022-01-04] MEDS: ATORVASTATIN 10 MG TABLET PO SCH (22:16)
[2022-01-04] MEDS: TRAZODONE 50 MG TABLET PO SCH (22:16)
[2022-01-05] MEDS: ZOLPIDEM TARTRATE 5 MG TABLET PO PRN (00:32)
--- NOTE | 2022-01-05 00:32 | NUR ---
RN NOTE: INSOMNIA PATIENT IS UNABLE TO SLEEP, GETS IRRITABLE EASILY, PRN AMBIEN 5 MG PO ADMINISTERED. WILL CONTINUE TO MONITOR.
[2022-01-05] MEDS: NEO/POLY-B/DEXAM OPHTH SUSP 5 ML BOTTLE LEFTEYE SCH ×4 (01:45→13:00)
[2022-01-05 08:00] VITALS: BP 152/74
[2022-01-05] MEDS: THIAMINE HCL 100 MG TABLET PO SCH (09:46)
[2022-01-05] MEDS: CARVEDILOL 12.5 MG TABLET PO SCH (09:47)
[2022-01-05] MEDS: risperiDONE 0.25 MG TABLET PO SCH (09:47)
[2022-01-05] MEDS: AMLODIPINE BESYLATE 10 MG TABLET PO SCH (09:47)
[2022-01-05] MEDS: ASPIRIN EC 81 MG TABLET.DR PO SCH (09:48)
[2022-01-05] MEDS: BENAZEPRIL HCL 20 MG TABLET PO SCH (09:48)
[2022-01-05] MEDS: POTASSIUM CHLORIDE 10 MEQ TABLET.SA PO SCH (09:48)
[2022-01-05] MEDS: DIVALPROEX SODIUM 250 MG TABLET.DR PO SCH (09:48)
[2022-01-05] MEDS: CIPROFLOXACIN HCL 0.3% 5 ML BOTTLE EACHEYE SCH (09:57)
--- NOTE | 2022-01-05 12:13 | NUR ---
Discharge Note: Patient will be discharged to [facility] [address] [place] [address] ([phone]). Please arrange ambulance transportation at 3PM. Spoke with Jaylin, Admin Coordinator ([phone]) at the facility who states they are ready to accept the patient today. Patients daughter VISH Lee ([phone]) is aware and agreeable. Patient is alert and oriented x2, is unable to plan for self-care at this time, however, is willing to accept care at [facility]. Patient denies any suicidal or homicidal ideation. Patient will follow-up at the facility with Dr. Mcintosh (Psychiatrist) [address], [place] [address]; ([phone]) and (Replanting Machine Operator) Dr. Webb [id number], [place] [address]; ([phone]). Addendum: 01/05/22 at 1224 by DINESH VARGAS Patient will follow-up at the facility with Dr. Carcamo [id number] [address]; ([phone]) will be the psychiatrist.
--- NOTE | 2022-01-05 12:30 | NUR ---
RN-CO: Patient was seen and examined by Dr Mcintosh and ordered to discontinue hold and discharge patient to [facility]. Patient remains calm and cooperative to care and pleasant to staff. She denies auditory and visual hallucinations. She also denies suicidal and homicidal ideations. No acute distress noted and medically cleared by Adan Harrington NP. All belongings will be given back to the patient and report will be given to the receiving RN.
--- NOTE | 2022-01-05 12:54 | NUR ---
RN NOTES COVID SWAB TEST COMPLETED AND SENT TO LAB FOR RESULTS REQUESTED TO BE COMPLETED BY 3 PM OR BEFORE DUE TO D/C PLAN
[2022-01-05 16:00] VITALS: BP 158/78
--- NOTE | 2022-01-05 16:53 | NUR ---
RN NOTES PT TRANSFERRED TO [facility] BY 2 LEAD [facility]BY ON RAILS DEVELOPER FROM [facility] BY AMBULANCE, SAFE TRANSFER FROM BED TO [facility], NO C/O PAIN AND NO DISTRESS NOTED, NO SOB VS TAKEN B/P = 142/60, P = 68, RR = 20 TEMP = 98.2 , REPORT GIVEN TO RN MANAGER GOVERNMENT KALYN AT [facility], ALL INFO PRINTED OUT, DOCUMENTS SIGNED AND SAVED IN FILE. FAMILY AWARE OF TRANSFER AND APPROVED AND MD AWARE OF TRANSFER OUT AND APPROVED.
== END 2022-01-05 16:50 | DRG 885 ==
LOC: GPS 20:28
PROVIDERS: ADMIT Psychiatry & Neurology Psychiatry; ATTEND Nurse Practitioner Acute Care
DX: F29 Unspecified psychosis not due to a substance or known physiological condition (principal); N39.0 Urinary tract infection, site not specified; F03.91 Unspecified dementia, unspecified severity, with behavioral disturbance; Z73.6 Limitation of activities due to disability; E78.5 Hyperlipidemia, unspecified; I10 Essential (primary) hypertension; D63.8 Anemia in other chronic diseases classified elsewhere; R79.89 Other specified abnormal findings of blood chemistry; B96.89 Other specified bacterial agents as the cause of diseases classified elsewhere; H54.62 Unqualified visual loss, left eye, normal vision right eye; F20.9 Schizophrenia, unspecified; H10.9 Unspecified conjunctivitis; F31.9 Bipolar disorder, unspecified
CPT/HCPCS: 36415; 70551-TC; 80048-TC; 80053-TC; 80061-TC; 80164-TC; 81001; 85025-TC; 87081-TC; 87086-TC; 97116-TC; 97530-TC